=== PATIENT | female | born 1970 | race Caucasian/White ===

== ENCOUNTER 2016-05-19 15:18 | Emergency (ER) | payer OTHER ==
[2016-05-19] MEDS ORDERED: ONDANSETRON 4 MG/2 ML VIAL IVP STA (16:50)
[2016-05-19] MEDS ORDERED: SODIUM CHLORIDE 0.9% 1,000 ML IV STA (16:50)
[2016-05-19] MEDS ORDERED: HYDROmorphone 1 MG/ML 1 ML SYRINGE IVP STA (16:50)
--- NOTE | 2016-05-19 16:57 | ED ---
Abdominal Pain HPI - General Chief Complaint: Abdominal Pain Stated Complaint: Abd pain Time Seen by Provider: 05/19/16 16:31 Source: patient, RN notes reviewed Mode of arrival: ambulatory Limitations: no limitations - History of Present Illness Initial Comments: Patient is a 46 Schapiro presenting to the with chief complaint of 2 days of right upper quadrant abdominal pain. Patient reports that it is a constant cramping like abdominal pain. Patient reports that she has had multiple abdominal surgeries including kidney reconstruction, cholecystectomy, appendectomy, hysterectomy, bowel resection after diverticulitis. Patient reports that she feels nauseated and has had a few episodes of vomiting. She denies any fever or chills. Patient reports that she has been feeling fatigued for the past few days. She denies any changes in urination including hematuria or dysuria. She denies any vaginal discharge or bleeding. She denies any diarrhea or changes in bowel movements. She denies any travel history or sick contacts. Patient denies any recent fever, chills, shortness of breath, chest pain, back pain, numbness or tingling, dysuria or hematuria, constipation or diarrhea, headaches or visual changes, or any other current symptoms - Related Data Home Medications Medication Instructions Recorded Confirmed Acetaminophen/Caffeine [Excedrin 2 tab PO DAILY PRN 05/19/16 05/19/16 Tension Headache Cplt] Previous Rx's Medication Instructions Recorded Dicyclomine [Bentyl] 10 mg PO TID #12 capsule 05/19/16 HYDROcodone/APAP 5-325MG [[place] 1 tab PO Q6HR PRN #8 tab 05/19/16 5-325] Ondansetron [Zofran] 4 mg PO Q8HR PRN #8 tab 05/19/16 Allergies Allergy/AdvReac Type Severity Reaction Status Date / Time acetaminophen Allergy Rash/Hives Verified 05/19/16 16:16 [From Tylenol-Codeine #3] codeine Allergy Rash/Hives Verified 05/19/16 16:16 [From Tylenol-Codeine #3] diphenhydramine HCl Allergy Anaphylaxis Verified 05/19/16 16:16 [From Benadryl] ketorolac [From Toradol] Allergy Rash/Hives Verified 05/19/16 16:16 morphine Allergy Rash/Hives Verified 05/19/16 16:16 nalbuphine HCl [From Nubain] Allergy Rash/Hives Verified 05/19/16 16:16 Penicillins Allergy Rash/Hives Verified 05/19/16 16:16 prochlorperazine Allergy Rash/Hives Verified 05/19/16 16:16 [From Compazine] prochlorperazine edisylate Allergy Rash/Hives Verified 05/19/16 16:16 [From Compazine] prochlorperazine maleate Allergy Rash/Hives Verified 05/19/16 16:16 [From Compazine] promethazine [From Phenergan] Allergy Rash/Hives Verified 05/19/16 16:16 sulfamethoxazole Allergy Nausea Verified 05/19/16 16:16 [From Bactrim] trimethoprim [From Bactrim] Allergy Nausea Verified 05/19/16 16:16 diphenhydramine AdvReac SHAKING, Verified 05/19/16 16:16 [From Benadryl] "BAD FEELING" Review of Systems ROS Statement: Those systems with pertinent positive or pertinent negative responses have been documented in the HPI. ROS Other: All systems not noted in ROS Statement are negative. 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 VARICOSE VEINS, FEET SORE AND ITCHING WHEN ON FEET. HX DIVERTICULITIS. History of Any Multi-Drug Resistant Organisms: None Reported Past Surgical History: Appendectomy, Bowel Resection, Section, Cholecystectomy, Hysterectomy, Tubal Ligation Additional Past Surgical History / Comment(s): LASER CERVIX. LAPAROSCOPY X3. C -S X3. KIDNEY STONE SURG X6-7. RT KIDNEY RECONSTRUCTION. HERNIA REPAIR IN INTESTINAL TRACT. ORIF RT FOOT, PINS REMOVED. Past Anesthesia/Blood Transfusion Reactions: Family History of Problems w/ Anesthesia Additional Past Anesthesia/Blood Transfusion Reaction / Comment(s): MOTHER - TAKES TOO LONG TO AWAKEN. Past Psychological History: Anxiety Smoking Status: Current every day smoker Past Alcohol Use History: None Reported Additional Past Alcohol Use History / Comment(s): SMOKES 1 PPD, X20 YEARS. Past Drug Use History: None Reported Additional Drug Use History / Comment(s): OCC USE MARIJUANA - Past Family History Mother Family Medical History: No Reported History General Exam - General Exam Comments Initial Comments: Patient is a 46-year-old female. She does not appear to be in any acute distress at this time. Limitations: no limitations General appearance: alert, in no apparent distress Head exam: Present: atraumatic, normocephalic, normal inspection Eye exam: Present: normal appearance, PERRL, EOMI. Absent: scleral icterus, conjunctival injection, periorbital swelling ENT exam: Present: normal exam, mucous membranes moist Neck exam: Present: normal inspection. Absent: tenderness, meningismus, lymphadenopathy Respiratory exam: Present: normal lung sounds bilaterally. Absent: respiratory distress, wheezes, rales, rhonchi, stridor Cardiovascular Exam: Present: regular rate, normal rhythm, normal heart sounds. Absent: systolic murmur, diastolic murmur, rubs, gallop, clicks GI/Abdominal exam: Present: soft, normal bowel sounds. Absent: distended, tenderness, guarding, rebound, rigid Extremities exam: Present: normal inspection, full ROM, normal capillary refill. Absent: tenderness, pedal edema, joint swelling, calf tenderness Back exam: Present: normal inspection Neurological exam: Present: alert, oriented X3, CN II-XII intact Psychiatric exam: Present: normal affect, normal mood Skin exam: Present: warm, dry, intact, normal color. Absent: rash Course Vital Signs 05/19/16 05/19/16 05/19/16 15:59 18:02 19:17 Temperature 97.7 F 98.9 F Pulse Rate 62 54 L 80 Respiratory 18 18 16 Rate Blood Pressure 166/72 146/85 135/86 O2 Sat by Pulse 98 98 98 Oximetry Medical Decision Making - Medical Decision Making Patient is a 46-year-old female presenting to the with chief complaint of right upper quadrant abdominal pain. Patient reports that this is occurred for the past 2 days. She reports that she's had multiple surgeries including cholecystectomy, kidney reconstruction, bowel reconstruction. Patient states that she's had no fever or chills. She just reports his adult ache in her right upper quadrant. Patient states that she feels nauseated but denies any vomiting. She denies any diarrhea or constipation. Labs are reviewed and are all negative for any acute process. KUB x-ray was also negative for any acute process. Patient will be discharged with pain medication, bentyl, and zofran for nausea. I will refer patient to GI if symptoms persist. Patient understands treatment plan and will comply. return parameters discussed. - Lab Data Result diagrams: 05/19/16 16:52 05/19/16 16:52 Lab Results 05/19/16 05/19/16 05/19/16 Range/Units 16:52 16:52 16:52 WBC 6.6 (3.8-10.6) k/uL RBC 4.84 (3.80-5.40) m/uL Hgb 15.1 (11.4-16.0) gm/dL Hct 45.1 (34.0-46.0) % MCV 93.3 (80.0-100.0) fL MCH 31.2 (25.0-35.0) pg MCHC 33.4 (31.0-37.0) g/dL RDW 12.6 (11.5-15.5) % Plt Count 304 (150-450) k/uL Neutrophils % 47 % Lymphocytes % 43 % Monocytes % 6 % Eosinophils % 2 % Basophils % 1 % Neutrophils # 3.1 (1.3-7.7) k/uL Lymphocytes # 2.8 (1.0-4.8) k/uL Monocytes # 0.4 (0-1.0) k/uL Eosinophils # 0.1 (0-0.7) k/uL Basophils # 0.1 (0-0.2) k/uL Sodium 145 (137-145) mmol/L Potassium 3.8 (3.5-5.1) mmol/L Chloride 109 H (98-107) mmol/L Carbon Dioxide 22 (22-30) mmol/L Anion Gap 14 mmol/L BUN 21 H (7-17) mg/dL Creatinine 0.67 (0.52-1.04) mg/dL Est GFR (MDRD) Af Amer >60 (>60 ml/min/1.73 sqM) Est GFR (MDRD) Non-Af >60 (>60 ml/min/1.73 sqM) Glucose 93 (74-99) mg/dL Calcium 10.3 H (8.4-10.2) mg/dL Total Bilirubin 0.4 (0.2-1.3) mg/dL AST 23 (14-36) U/L ALT 27 (9-52) U/L Alkaline Phosphatase 106 (38-126) U/L Total Protein 8.2 (6.3-8.2) g/dL Albumin 4.7 (3.5-5.0) g/dL Amylase 54 (30-110) U/L Lipase 126 (23-300) U/L Urine Color Yellow Urine Appearance Cloudy H (Clear) Urine pH 6.0 (5.0-8.0) Ur Specific [place] 1.032 (1.001-1.035) Urine Protein 1+ H (Negative) Urine Glucose (UA) Negative (Negative) Urine Ketones Negative (Negative) Urine Blood Negative (Negative) Urine Nitrate Negative (Negative) Urine Bilirubin Negative (Negative) Urine Urobilinogen 3.0 (<2.0) mg/dL Ur Leukocyte Esterase Negative (Negative) Urine RBC 7 H (0-5) /hpf Urine WBC 3 (0-5) /hpf Ur Squamous Epith Cells 4 (0-4) /hpf Urine Mucus Many H (None) /hpf - Radiology Data Radiology results: report reviewed KUB x-ray shows evidence of previous surgeries. No evidence of any acute abnormalities. This is read by Dr. Willis. Disposition Clinical Impression: Abdominal pain, Vomiting Disposition: HOME SELF-CARE Condition: Good Instructions: Abdominal Pain (ED) Additional Instructions: Patient started to close follow-up with primary care physician. Patient instructed to remain hydrated. Monitor for any abnormal signs or symptoms and return to the EC at once. Take medications as prescribed. Return to the EC If Anything Alarming Occurs. Prescriptions: Dicyclomine [Bentyl] 10 mg PO TID #12 capsule HYDROcodone/APAP 5-325MG [[place] 5-325] 1 tab PO Q6HR PRN #8 tab PRN Reason: Pain Ondansetron [Zofran] 4 mg PO Q8HR PRN #8 tab PRN Reason: Nausea And Vomiting Referrals: Jill Clark MD [Primary Care Provider] - 1-2 days Time of Disposition: 18:24
[2016-05-19 17:06] LABS: Basophils # (A) 0.1 k/uL (0-0.2); Basophils % (A) 1 %; CH 32.5; Eosinophils # (A) 0.1 k/uL (0-0.7); Eosinophils % (A) 2 %; HCT 45.1 % (34.0-46.0); HDW 2.52; HGB 15.1 gm/dL (11.4-16.0); Luc # (Auto) 0.15; Luc % (Auto) 2; Lymphocytes # (A) 2.8 k/uL (1.0-4.8); Lymphocytes % (A) 43 %; MCH 31.2 pg (25.0-35.0); MCHC 33.4 g/dL (31.0-37.0); MCV 93.3 fL (80.0-100.0); Monocytes # (A) 0.4 k/uL (0-1.0); Monocytes % (A) 6 %; Neutrophils # (A) 3.1 k/uL (1.3-7.7); Neutrophils % (A) 47 %; RBC 4.84 m/uL (3.80-5.40); RDW 12.6 % (11.5-15.5); WBC 6.6 k/uL (3.8-10.6); WBC (Perox) 6.66
[2016-05-19 17:09] LABS: Appearance,Urine Cloudy (Clear); Bilirubin,Urine Negative (Negative); Glucose,Urine (UA) Negative (Negative); Ketones,Urine Negative (Negative); Leukocyte Esterase,Urine Negative (Negative); Mucus,Urine Many /hpf; Nitrite,Urine Negative (Negative); Particle Count 8868; Protein,Urine 1+ (Negative); RBC,Urine 7 /hpf (0-5); Specific Gravity,Urine 1.032 (1.001-1.035); Squamous Epithelial Cell,Urine 4 /hpf (0-4); UA Billing (MACRO vs. MICRO) MICRO; WBC,Urine 3 /hpf (0-5)
[2016-05-19 17:15] LABS: ALT 27 U/L (9-52); AST 23 U/L (14-36); Alkaline Phosphatase 106 U/L (38-126); Amylase 54 U/L (30-110); Anion Gap 14 mmol/L; Blood Urea Nitrogen 21 mg/dL (7-17); Calcium 10.3 mg/dL (8.4-10.2); Carbon Dioxide 22 mmol/L (22-30); Chloride 109 mmol/L (98-107); Glucose 93 mg/dL (74-99); Non-African American GFR(MDRD) >60 (>60 ml/min/1.73 sqM); Potassium 3.8 mmol/L (3.5-5.1); Sodium 145 mmol/L (137-145); Total Bilirubin 0.4 mg/dL (0.2-1.3); Total Protein 8.2 g/dL (6.3-8.2)
--- NOTE | 2016-05-19 17:48 | XR ---
EXAMINATION TYPE: XR KUB DATE OF EXAM: 05/19/2016 5:35 PM COMPARISON: NONE HISTORY: Right upper quadrant pain TECHNIQUE: 2 views FINDINGS: Bowel gas pattern is normal. There is no sign of intestinal obstruction or pneumoperitoneum . Fecal pattern is normal. There is no sign of a mass. There are clips from cholecystectomy. Lung bas es are clear. IMPRESSION: Nonacute abdomen. Previous surgery.
[2016-05-19] MEDS ORDERED: DICYCLOMINE 20 MG TAB PO STA (18:27)
[2016-05-19 19:18] VITALS: BP 135/86; PULSE 80; RESP 16; TEMP 98.9
== END 2016-05-19 19:29 | disposition home or self-care (01) ==
LOC: EC 15:18
DX: R10.11 Right upper quadrant pain (principal); R11.2 Nausea with vomiting, unspecified; R53.83 Other fatigue; Z88.6 Allergy status to analgesic agent; Z88.1 Allergy status to other antibiotic agents; Z88.5 Allergy status to narcotic agent; Z88.0 Allergy status to penicillin; Z88.2 Allergy status to sulfonamides; Z88.8 Allergy status to other drugs, medicaments and biological substances; F17.200 Nicotine dependence, unspecified, uncomplicated
CPT/HCPCS: 36415; 80053; 82150; 83690; 85025; 81001; 87086; 74000; 96374; 96375; 96361; 99284; J2405; J1170

== ENCOUNTER → 2016-06-01 | Outpatient (CLI) | payer OTHER ==
--- NOTE | 2016-06-01 13:25 | CT ---
EXAMINATION TYPE: CT abdomen w con DATE OF EXAM: 06/01/2016 1:03 PM COMPARISON: Abdomen May 19, 2016 HISTORY: Abdomen pain, right upper quadrant pain Automated exposure control for dose reduction was used. TECHNIQUE: Helical acquisition of images was performed from the lung bases through the top of iliac crest to include entire abdomen. CONTRAST: Patient received 100 cc Omni 300 IV with oral contrast FINDINGS: LUNG BASES: Minimal dependent atelectatic changes are present, no pleural or pericardial effusion. LIVER/GB: Mildly dilated intrahepatic biliary ducts are present, patient is post cholecystectomy. PANCREAS: No significant abnormality is seen. SPLEEN: No significant abnormality is seen. ADRENALS: No significant abnormality is seen. KIDNEYS: No significant abnormality is seen. BOWEL: No significant abnormality is seen. OSSEOUS STRUCTURES: No significant abnormality is seen. FREE AIR: No Free Air visible ASCITES: None visible. RETROPERITONEAL ADENOPATHY: No Retroperitoneal Adenopathy visible. OTHER: Surgical clip is present in the retroperitoneal location to the right of midline possibly rela williams to prior cholecystectomy change IMPRESSION: POSTOP CHANGES DESCRIBED.
--- NOTE | 2016-06-01 14:05 | XR ---
EXAMINATION TYPE: XR sacroiliac joint comp BILAT, 5 views XR sacrum coccyx, 3 views DATE OF EXAM: 06/01/2016 12:02 PM COMPARISON: NONE HISTORY: 46-year-old female low back pain since coccyx fracture, evaluate for sacroiliitis. FINDINGS: SI joints: Both SI joints appear symmetric and intact and no subarticular erosions are seen. No abnormal widenin g. No subchondral sclerosis. Sacrum/coccyx: There is no delineation to the arcuate lines of the sacrum. There is slight posterior displacement ne ar the sacrococcygeal junction and slight anterior angulation of the lower coccygeal segment. Staple line within the pelvis from prior bowel anastomosis. IMPRESSION: 1. No specific radiographic findings of sacroiliitis. 2. Age-indeterminate tailbone fracture.
== END | disposition home or self-care (01) ==
LOC: RADCTMAIN 11:28
PROVIDERS: ATTEND Internal Medicine
DX: Z90.49 Acquired absence of other specified parts of digestive tract (principal); M53.3 Sacrococcygeal disorders, not elsewhere classified; R10.9 Unspecified abdominal pain
CPT/HCPCS: 72220; 72202; 74160; Q9967

== ENCOUNTER → 2016-08-23 | Outpatient (CLI) | payer OTHER ==
--- NOTE | 2016-08-25 07:42 | MR ---
EXAMINATION TYPE: MR brain and iac wo/w con DATE OF EXAM: 08/23/2016 1:22 PM COMPARISON: NONE HISTORY: disorder of cranial nerves CONTRAST: Performed utilizing 10 mL intravenous MultiHance gadolinium contrast. TECHNIQUE: Multiplanar, multiecho imaging on a 3.0 Libra magnet is performed through the brain. Stud y is performed within 24 hours of arrival to the hospital. The craniovertebral junction is normal. The pituitary is normal. Diffusion-weighted imaging is performed. No abnormal hyperintensity is present to suggest an acute i ntracranial infarct or acute ischemic change. There are 4 punctate hyperintensities in subcortical white matter on T2 and inversion recovery weight ed sequences. This is not out of proportion to the patient's age. Findings are nonspecific but could be related to migraine headaches. The largest is within the left centrum semiovale measuring 0.5 x 0. 3 cm in size. Series 501 image 19. Ventricles and sulci are appropriate for the patient age. Dedicated thin section imaging is performed through the features represent internal auditory canals. Internal auditory canals appear normal without expansion or erosion. Cerebellar pontine angles are no rmal. Mastoid air cells are unremarkable. No abnormal enhancement is evident within the internal auditory canals or cerebellar pontine angles. Mastoid air cells are clear. IMPRESSIONS: 1. Normal internal auditory canals. 2. Normal MR brain. White matter changes are present but not out of portion to the patient age.
== END | disposition home or self-care (01) ==
LOC: RADMRIMAIN 12:31
PROVIDERS: ATTEND Psychiatry & Neurology Neurology
DX: R90.82 White matter disease, unspecified (principal); G52.9 Cranial nerve disorder, unspecified; R40.4 Transient alteration of awareness; R56.9 Unspecified convulsions; H91.92 Unspecified hearing loss, left ear; Z88.0 Allergy status to penicillin; Z88.2 Allergy status to sulfonamides; Z88.5 Allergy status to narcotic agent; Z88.6 Allergy status to analgesic agent; Z88.8 Allergy status to other drugs, medicaments and biological substances
CPT/HCPCS: 70553; A9577